=== PATIENT | male | born 1995 | race Asian ===

== ENCOUNTER 2018-01-31 12:08 | Outpatient (CLI) | payer BC ==
--- NOTE | 2018-01-31 12:38 | RAD ---
LEFT ELBOW FOUR VIEWS: History: Left elbow pain. FINDINGS/IMPRESSION: No abnormalities identified. POS: [id number]
== END 2018-01-31 12:09 | disposition home or self-care (01) ==
LOC: SCSRAD 12:08
PROVIDERS: ATTEND Nurse Practitioner Family
DX: M25.522 Pain in left elbow (principal)